=== PATIENT | female | born 1980 ===

== ENCOUNTER 2019-03-19 09:55 | Emergency (ER) | payer OTHER ==
[2019-03-19] MEDS ORDERED: Ondansetron INJ* 2 MG/ML VIAL IV ONE (10:24)
[2019-03-19] MEDS ORDERED: NS 0.9% 1000 ML** 1,000 ML IV ONE (10:24)
[2019-03-19] MEDS ORDERED: diPHENhydraMINE IV* 50 MG/ML 1 ml VIAL (BENADRYL) IV ONE (10:38)
[2019-03-19 10:47] LABS: ABS Basophils 0.1 10^3/ul (0-0.2); ABS Eosinophils 0.1 10^3/ul (0-0.6); ABS Lymphocytes 1.5 10^3/ul (1.0-4.8); ABS Monocytes 0.8 10^3/ul (0-0.8); ABS Neutrophils 3.5 10^3/ul (1.5-7.7); Hematocrit 38 % (35-47); Hemoglobin 13.4 g/dL (12.0-16.0); Lymphocyte % 25.7 %; Mean Corpuscular HGB Conc 35 g/dL (31-36); Mean Corpuscular Hemoglobin 32 pg (27-31); Mean Corpuscular Volume 89 fL (80-97); Nucleated Red Blood Cells % 0.1; Platelet Count 322 10^3/uL (150-450); Red Blood Count 4.24 10^6 /uL (3.70-4.87); Red Cell Distribution Width 13 % (10-15)
[2019-03-19 10:52] LABS: INR 1.1 (0.82-1.09)
[2019-03-19 11:15] LABS: HCG Pregnancy < 0.60 mIU/mL
[2019-03-19 11:19] LABS: ALT 23 U/L (7-52); AST 20 U/L (13-39); Albumin 3.7 g/dL (3.2-5.2); Albumin/Globulin Ratio 1.2 (1-3); Alkaline Phosphatase 62 U/L (34-104); BUN/Creatinine Ratio 14.1 (8-20); Blood Urea Nitrogen 11 mg/dL (6-24); C Reactive Protein 20.89 mg/L (<8.01); CO2 Carbon Dioxide 31 mmol/L (22-32); Calcium 9.3 mg/dL (8.6-10.3); Chloride 96 mmol/L (101-111); Creatine Kinase 39 U/L (10-223); EGFR Non-African American 82.7 (>60); Globulin 3.1 g/dL (2-4); Glucose 93 mg/dL (70-100); Magnesium 1.9 mg/dL (1.9-2.7); Sodium 134 mmol/L (135-145); Total Protein 6.8 g/dL (6.4-8.9)
[2019-03-19 11:24] LABS: Anion Gap 7 mmol/L (2-11); Potassium 2.6 mmol/L (3.5-5.0)
[2019-03-19] MEDS ORDERED: Potassium Chlor TAB* 20 MEQ TAB.ER PO ONE (11:26)
[2019-03-19 14:05] LABS: Influenza A Molecular NEGATIVE (Negative); Influenza B Molecular NEGATIVE (Negative)
[2019-03-19 14:17] VITALS: BP 120/74
[2019-03-19 14:27] LABS: Urine Appearance Clear; Urine Bacteria Absent (Absent); Urine Bilirubin Negative (Negative); Urine Blood 3+ (Negative); Urine Color Yellow; Urine Glucose Negative (Negative); Urine Ketones Trace (Negative); Urine Nitrite Negative (Negative); Urine Protein Negative (Negative); Urine Red Blood Cell 3+(>10/hpf) (Absent); Urine Specific Gravity 1.008 (1.010-1.030); Urine Urobilinogen Negative (Negative); Urine White Blood Cell Trace(0-5/hpf) (Absent)
--- NOTE | 2019-03-19 16:51 | ED ---
Nausea/Vomiting/Diarrhea HPI - HPI Summary HPI Summary: This patient is a 38-year-old female inmate who presents to the ED with 1 week history of nausea, vomiting, diarrhea. Last bowel movement was yesterday and was normal, no diarrhea or other bowel movement since. Endorsing nausea and vomiting, and states she has never had this before. Endorsing several episodes of vomiting per day. No history of cyclic vomiting syndrome. Denies any fevers , sweats, chills. Denies any urinary symptoms or back pain. She was given 1 L fluids at the correction yesterday which improved her symptoms somewhat. She denies any weakness or lethargy. She denies any chance of . Symptoms are not worse or better after eating. She states she has not eaten since Saturday, however then re-states she did have some yogurt last night and did not have any episodes of emesis following. - History of Current Complaint Chief Complaint: EDNauseaVomitDiarrh Stated Complaint: VOMITING Time Seen by Provider: 03/19/19 10:22 Hx Obtained From: Patient ?: No Onset/Duration: Sudden Onset Timing: Constant Severity Initially: Moderate Severity Currently: Moderate Pain Intensity: 0 Pain Scale Used: 0-10 Numeric Aggravating Factor(s): Nothing Alleviating Factor(s): Nothing Nausea/Vomiting Presence: None Diarrhea Presence: No - Risk Factors Influenza Risk Factors: Negative - Allergies/Home Medications Allergies/Adverse Reactions: Allergies Allergy/AdvReac Type Severity Reaction Status Date / Time azithromycin Allergy Rash Verified 03/19/19 10:08 [From Zithromax Z-Amado] metronidazole [From Flagyl] Allergy Rash Verified 03/19/19 10:08 Penicillins Allergy Rash Verified 03/19/19 10:08 Home Medications: Home Medications Azithromycin TAB* [Zithromax TAB (Z-AMADO) 250 mg #6 tabs] 250 mg PO DAILY [History Confirmed 03/19/19] Ciprofloxacin TAB* [Cipro 500 MG TAB*] 500 mg PO BID 03/19/19 [History Confirmed 03/19/19] FLUoxetine CAP* [PROzac CAP*] 10 mg PO DAILY 03/19/19 [History Confirmed ] PMH/Surg Hx/FS Hx/Imm Hx Previously Healthy: Yes - Immunization History Hx Pertussis Vaccination: No Immunizations Up to Date: Yes Infectious Disease History: No Infectious Disease History: Denies: Traveled Outside the [place] in Last 30 Days - Social History Occupation: Unemployed Lives: Alone - correction Alcohol Use: None Hx Substance Use: No Substance Use Type: Reports: None Smoking Status (MU): Never Smoked Tobacco Review of Systems Constitutional: Negative Negative: Fever, Chills, Fatigue, Skin Diaphoresis Negative: Palpitations, Chest Pain Negative: Shortness Of Breath, Cough Positive: Vomiting, Diarrhea, Nausea Genitourinary: Negative Positive: no symptoms reported, see HPI Negative: Arthralgia, Myalgia Skin: Negative Neurological: Negative All Other Systems Reviewed And Are Negative: Yes Physical Exam Triage Information Reviewed: Yes Vital Signs On Initial Exam: Initial Vitals Temp Pulse Resp BP Pulse Ox 97.3 F 79 16 147/97 100 03/19/19 10:05 03/19/19 10:05 03/19/19 10:05 03/19/19 10:05 03/19/19 10:05 Vital Signs Reviewed: Yes Appearance: Positive: Well-Appearing, No Pain Distress, Well-Nourished Skin: Positive: Skin Color Reflects Adequate Perfusion Head/Face: Positive: Normal Head/Face Inspection Eyes: Positive: EOMI, Conjunctiva Clear Neck: Positive: Supple, No Lymphadenopathy Respiratory/Lung Sounds: Positive: Clear to Auscultation, Breath Sounds Present Cardiovascular: Positive: RRR, Pulses are Symmetrical in both Upper and Lower Extremities Abdomen Description: Positive: Nontender, No Organomegaly, Soft. Negative: CVA Tenderness (R), CVA Tenderness (L) Musculoskeletal: Positive: Normal, Strength/ROM Intact Neurological: Positive: Speech Normal Psychiatric: Positive: Affect/Mood Appropriate Procedures - Sedation Patient Received Moderate/Deep Sedation with Procedure: No Diagnostics - Vital Signs Vital Signs Temp Pulse Resp BP Pulse Ox 03/19/19 14:16 98.1 F 80 16 120/74 99 03/19/19 13:31 85 107/66 100 03/19/19 13:01 84 109/68 99 03/19/19 13:00 79 98 03/19/19 12:01 77 117/85 99 03/19/19 12:00 90 100 03/19/19 11:00 73 99 03/19/19 10:33 73 99 03/19/19 10:31 85 118/93 99 03/19/19 10:05 97.3 F 79 16 147/97 100 - Laboratory Lab Results: Lab Results 03/19/19 03/19/19 03/19/19 Range/Units 10:39 10:39 10:39 WBC 6.0 (3.5-10.8) 10^3/uL RBC 4.24 (3.70-4.87) 10^6 /uL Hgb 13.4 (12.0-16.0) g/dL Hct 38 (35-47) % MCV 89 (80-97) fL MCH 32 H (27-31) pg MCHC 35 (31-36) g/dL RDW 13 (10-15) % Plt Count 322 (150-450) 10^3/uL MPV 8.0 (7.4-10.4) fL Neut % (Auto) 58.2 % Lymph % (Auto) 25.7 % Braxton % (Auto) 14.0 % Eos % (Auto) 1.0 % Baso % (Auto) 1.1 % Absolute Neuts (auto) 3.5 (1.5-7.7) 10^3/ul Absolute Lymphs (auto) 1.5 (1.0-4.8) 10^3/ul Absolute Monos (auto) 0.8 (0-0.8) 10^3/ul Absolute Eos (auto) 0.1 (0-0.6) 10^3/ul Absolute Basos (auto) 0.1 (0-0.2) 10^3/ul Absolute Nucleated RBC 0.0 10^3/ul Nucleated RBC % 0.1 INR (Anticoag Therapy) 1.10 H (0.82-1.09) Sodium 134 L (135-145) mmol/L Potassium 2.6 L* (3.5-5.0) mmol/L Chloride 96 L (101-111) mmol/L Carbon Dioxide 31 (22-32) mmol/L Anion Gap 7 (2-11) mmol/L BUN 11 (6-24) mg/dL Creatinine 0.78 (0.51-0.95) mg/dL Est GFR ( Amer) 100.0 (>60) Est GFR (Non-Af Amer) 82.7 (>60) BUN/Creatinine Ratio 14.1 (8-20) Glucose 93 (70-100) mg/dL Lactic Acid (0.5-2.0) mmol/L Calcium 9.3 (8.6-10.3) mg/dL Magnesium 1.9 (1.9-2.7) mg/dL Total Bilirubin 0.30 (0.2-1.0) mg/dL AST 20 (13-39) U/L ALT 23 (7-52) U/L Alkaline Phosphatase 62 (34-104) U/L Total Creatine Kinase 39 (10-223) U/L C-Reactive Protein 20.89 H (<8.01) mg/L Total Protein 6.8 (6.4-8.9) g/dL Albumin 3.7 (3.2-5.2) g/dL Globulin 3.1 (2-4) g/dL Albumin/Globulin Ratio 1.2 (1-3) Lipase 23 (11.0-82.0) U/L Beta HCG, Quant < 0.60 mIU/mL Urine Color Urine Appearance Urine pH (5-9) Ur Specific Amo (1.010-1.030) Urine Protein (Negative) Urine Ketones (Negative) Urine Blood (Negative) Urine Nitrate (Negative) Urine Bilirubin (Negative) Urine Urobilinogen (Negative) Ur Leukocyte Esterase (Negative) Urine WBC (Auto) (Absent) Urine RBC (Auto) (Absent) Urine Bacteria (Absent) Urine Glucose (Negative) Influenza A (Rapid) (Negative) Influenza B (Rapid) (Negative) 03/19/19 03/19/19 03/19/19 Range/Units 10:40 13:20 13:36 WBC (3.5-10.8) 10^3/uL RBC (3.70-4.87) 10^6 /uL Hgb (12.0-16.0) g/dL Hct (35-47) % MCV (80-97) fL MCH (27-31) pg MCHC (31-36) g/dL RDW (10-15) % Plt Count (150-450) 10^3/uL MPV (7.4-10.4) fL Neut % (Auto) % Lymph % (Auto) % Braxton % (Auto) % Eos % (Auto) % Baso % (Auto) % Absolute Neuts (auto) (1.5-7.7) 10^3/ul Absolute Lymphs (auto) (1.0-4.8) 10^3/ul Absolute Monos (auto) (0-0.8) 10^3/ul Absolute Eos (auto) (0-0.6) 10^3/ul Absolute Basos (auto) (0-0.2) 10^3/ul Absolute Nucleated RBC 10^3/ul Nucleated RBC % INR (Anticoag Therapy) (0.82-1.09) Sodium (135-145) mmol/L Potassium (3.5-5.0) mmol/L Chloride (101-111) mmol/L Carbon Dioxide (22-32) mmol/L Anion Gap (2-11) mmol/L BUN (6-24) mg/dL Creatinine (0.51-0.95) mg/dL Est GFR ( Amer) (>60) Est GFR (Non-Af Amer) (>60) BUN/Creatinine Ratio (8-20) Glucose (70-100) mg/dL Lactic Acid 1.0 (0.5-2.0) mmol/L Calcium (8.6-10.3) mg/dL Magnesium (1.9-2.7) mg/dL Total Bilirubin (0.2-1.0) mg/dL AST (13-39) U/L ALT (7-52) U/L Alkaline Phosphatase (34-104) U/L Total Creatine Kinase (10-223) U/L C-Reactive Protein (<8.01) mg/L Total Protein (6.4-8.9) g/dL Albumin (3.2-5.2) g/dL Globulin (2-4) g/dL Albumin/Globulin Ratio (1-3) Lipase (11.0-82.0) U/L Beta HCG, Quant mIU/mL Urine Color Yellow Urine Appearance Clear Urine pH 7.0 (5-9) Ur Specific Amo 1.008 L (1.010-1.030) Urine Protein Negative (Negative) Urine Ketones Trace A (Negative) Urine Blood 3+ A (Negative) Urine Nitrate Negative (Negative) Urine Bilirubin Negative (Negative) Urine Urobilinogen Negative (Negative) Ur Leukocyte Esterase Negative (Negative) Urine WBC (Auto) Trace(0-5/hpf) (Absent) Urine RBC (Auto) 3+(>10/hpf) A (Absent) Urine Bacteria Absent (Absent) Urine Glucose Negative (Negative) Influenza A (Rapid) Negative (Negative) Influenza B (Rapid) Negative (Negative) Result Diagrams: 03/19/19 10:39 03/19/19 10:39 Lab Statement: Any lab studies that have been ordered have been reviewed, and results considered in the medical decision making process. Naus/Vom/Diarrhea Course/Dx - Course Course Of Treatment: Patient is evaluated for nausea, vomiting, diarrhea. She denies any diarrhea currently and states she is unable to give a stool sample. Fluids are given as well as Zofran. Labs are obtained. On physical examination , patient appears well, nondiaphoretic nontoxic in appearing. She is not pale, lungs are CTA, RRR, no abdominal tenderness throughout, no CVA tenderness. Patient does not appear weak. Labs are obtained which show normal labs which are unremarkable except for potassium of 2.6. She was given oral repletion of potassium chloride of 40 mEq. She is denying any symptoms including any nausea at this time. She will be discharged home with a prescription for potassium chloride 20 mEq twice a day 5 days. She will have her potassium rechecked in 2 days and again in 4 days. - Differential Dx/Diagnosis Differential Diagnoses - Female: Other - diarrhea, viral syndrome, hypokalemia Provider Diagnosis: Nausea and vomiting, Hypokalemia Condition At Discharge: Stable Discharge ED - Sign-Out/Discharge Documenting (check all that apply): Patient Departure - Discharge Plan Condition: Stable Disposition: HOME Prescriptions: Ondansetron ODT TAB* [Zofran 4 MG Odt TAB*] 4 mg PO Q6H PRN #12 tab.odt MDD 4 PRN Reason: Nausea Potassium Chlor TAB* [Potassium Chlor TAB 20 MEQ*] 20 meq PO BID #10 tab.er Patient Education Materials: Hypokalemia (ED), Acute Nausea and Vomiting (ED) Referrals: No Primary Care Phys,NOPCP [Primary Care Provider] - Additional Instructions: Please recheck potassium level in 2-3 days If potassium level is within normal limits, you may discontinue use of potassium If the level is still low, continue for 2 more days and recheck the level Zofran as needed for nausea Return to the ED for worsening or changing symptoms - Billing Disposition and Condition Condition: STABLE Disposition: Home
== END 2019-03-19 14:10 | disposition home or self-care (01) ==
LOC: ED 09:55
DX: R11.2 Nausea with vomiting, unspecified (principal); E87.6 Hypokalemia; Z88.1 Allergy status to other antibiotic agents; Z88.0 Allergy status to penicillin
CPT/HCPCS: 36415; 80053; 81003; 81015; 82550; 83605; 83690; 83735; 84702; 85025; 85610; 86140; 87086; 93005; 96361; 96374; 96375; 99283; A9270-GY; J1200; J2405